=== PATIENT | male | born 1940 | race Caucasian/White ===

== ENCOUNTER → 2016-02-25 | Outpatient (CLI) | payer OTHER, MEDICARE | LOC: MMPC 11:11 | PROVIDERS: ATTEND Internal Medicine | DX: G20 Parkinson's disease (principal); J44.9 Chronic obstructive pulmonary disease, unspecified; M81.0 Age-related osteoporosis without current pathological fracture | CPT/HCPCS: 99214; G0463 ==

== ENCOUNTER → 2016-03-30 | Outpatient (CLI) | payer OTHER, MEDICARE ==
--- NOTE | 2016-03-30 17:12 | DI ---
CT CHEST W/O CONTRAST,03/30/2016 4:30 PM: Clinical History: Chronic obstructive pulmonary disease. Previous Exam: None at this facility. Findings: Multiple helically acquired CT images are obtained through the abdomen and pelvis without contrast. The thyroid is unremarkable. Peripheral vascular calcifications are seen. Coronary artery calcifications are also seen. Diffuse degenerative changes of the thoracic spine are seen. The upper abdomen is unremarkable. There is no significant COPD. Impression: No acute intrathoracic pathology.
== END ==
LOC: LAB 16:27
PROVIDERS: ATTEND Internal Medicine
DX: J44.9 Chronic obstructive pulmonary disease, unspecified (principal); R06.09 Other forms of dyspnea; G20 Parkinson's disease
CPT/HCPCS: 36415; 71250; 83880; 99214; G0463

== ENCOUNTER → 2016-05-26 | Outpatient (CLI) | payer OTHER, MEDICARE | LOC: MMPC 11:11 | PROVIDERS: ATTEND Internal Medicine | DX: M81.0 Age-related osteoporosis without current pathological fracture (principal); J44.9 Chronic obstructive pulmonary disease, unspecified | CPT/HCPCS: 99214; G0463 ==

== ENCOUNTER → 2016-09-17 | Outpatient (CLI) | payer OTHER, MEDICARE ==
[2016-09-17 16:35] LABS: BUN/CREATININE RATIO 21.25 (6-20); CALCIUM 9.2 mg/dL (8.7-10.7)
== END ==
LOC: LAB 15:20
PROVIDERS: ATTEND Internal Medicine
DX: M81.0 Age-related osteoporosis without current pathological fracture (principal)
CPT/HCPCS: 36415; 80048